=== PATIENT | female | born 1960 | race Two or more races ===

== ENCOUNTER 2020-04-16 06:48 | Day surgery (SDC) | payer BC, MEDICARE ==
[~2020-04-16] VITALS: Ht 162.6 cm; Wt 90.7 kg
[~2020-04-16 06:48] MED LIST: GABA300C10 PO; IBUP800T24 PO; NAPR375T27 PO
[2020-04-16] MEDS ORDERED: LIDOCAINE 2%HCL (LOCAL ANESTH.) INJ 20ML MDV ONE (07:45)
[2020-04-16] MEDS ORDERED: IODIXANOL 320MG/ML 100ML BTL IV ONE (07:45)
[2020-04-16] MEDS ORDERED: VERAPAMIL 2.5MG/ML INJ 2ML VIAL IV ONE (08:02)
[2020-04-16] MEDS ORDERED: MIDAZOLAM HCL 1MG/1ML-2 ML VIAL ONE (08:02)
[2020-04-16] MEDS ORDERED: fentaNYL CITRATE 100 MCG/2 ML VL ONE (08:02)
[2020-04-16] MEDS ORDERED: HEPARIN SODIUM (PORCINE) 5000 UNITS/ML 1ML VIAL ONE (08:02)
[2020-04-16] MEDS ORDERED: ANGIOMAX 250 MG VIAL IV ONE (08:02)
[2020-04-16] MEDS ORDERED: SODIUM CHL 0.9% 50 ML ONE (08:03)
[2020-04-16] MEDS ORDERED: NITROGLYCERIN 5MG/ML 10ML VIAL IV ONE (08:04)
[2020-04-16] MEDS ORDERED: NITROGLYCERIN 50MG/250ML 0 ML IV ONE (08:04)
[2020-04-16] MEDS ORDERED: methylPREDNISolone SOD SUCC 125 MG/2 ML VL ONE (08:14)
[2020-04-16] MEDS ORDERED: diphenhdrAMINE HCL 50 MG/1 ML VL ONE (08:14)
[2020-04-16] MEDS ORDERED: FAMOTIDINE (10MG/ML) 2ML VL IV ONE (08:15)
[2020-04-16] MEDS ORDERED: hydrALAZINE HCL 20 MG/ML VL ONE (08:36)
[2020-04-16] MEDS ORDERED: HYDROcodone-ACET 5/325MG TAB PO PRN (09:00)
[2020-04-16] MEDS ORDERED: ACETAMINOPHEN 500 MG TAB PO PRN (09:00)
[2020-04-16] MEDS ORDERED: ONDANSETRON HCL 4 MG/2 ML VIAL IV PRN (09:00)
== END 2020-04-16 11:07 | disposition home or self-care (01) ==
LOC: CATH 06:48
PROVIDERS: ATTEND Internal Medicine
DX: I25.110 Atherosclerotic heart disease of native coronary artery with unstable angina pectoris (principal); Z91.041 Radiographic dye allergy status; Z98.890 Other specified postprocedural states; Z79.899 Other long term (current) drug therapy; Z11.59 Encounter for screening for other viral diseases
CPT/HCPCS: 93458; C1769; C1894; J0360; J0583; J1200; J1644; J2250; J2930; J3010; J3490; J7030; Q9967; U0003; 99152